=== PATIENT | male | born 1960 | race Caucasian/White ===

== ENCOUNTER 2016-06-28 10:32 | Emergency (ER) | payer OTHER ==
[~2016-06-28] VITALS: Ht 177.8 cm; Wt 72.6 kg
[2016-06-28 10:55] VITALS: BP 132/58
== END 2016-06-28 11:05 | disposition home or self-care (01) ==
LOC: ER 10:34
DX: R19.7 Diarrhea, unspecified (principal); J40 Bronchitis, not specified as acute or chronic
CPT/HCPCS: 99283; A4606; Z7610

== ENCOUNTER 2016-07-20 18:52 | Emergency (ER) | payer OTHER ==
[~2016-07-20] VITALS: Ht 175.3 cm; Wt 72.6 kg
[2016-07-20 18:59] VITALS: BP 125/88
== END 2016-07-20 19:46 | disposition home or self-care (01) ==
LOC: ER 18:56
DX: J20.9 Acute bronchitis, unspecified (principal); F41.9 Anxiety disorder, unspecified
CPT/HCPCS: A4606; Z7610

== ENCOUNTER 2016-08-06 09:17 | Emergency (ER) | payer OTHER ==
[~2016-08-06] VITALS: Ht 177.8 cm; Wt 72.6 kg
--- NOTE | 2016-08-06 09:31 | NUR ---
PT BIB SELF COUGH AND BODY X1 MO. FINISHED ZPAK X5 WEEKS AGO, FINISHED LEVAQUIN X 8 DAYS AGO. PLACED PT ON MONITOR. VSS. MADE PT COMFORTABLE AND SAFETY MEASURES IN PLACED.
[2016-08-06] MEDS ORDERED: IV NS 0.9% 1,000 ML IV ONE (10:02)
[2016-08-06] MEDS ORDERED: methylPREDNISolone SOD SUCC 125 MG/2ML VIAL ONE (10:05)
--- NOTE | 2016-08-06 10:05 | NUR ---
RAC #[id number] IV ACCESS. BLOOD SAMPLE COLLECTED SENT TO LAB
[2016-08-06] MEDS ORDERED: IV NS 0.9% 1,000 ML ONE (10:06)
[2016-08-06] MEDS ORDERED: IV SET PRIMARY PUMP SET 1 EA INFUS.SET MC ONE ×2 (10:06→10:17)
[2016-08-06] MEDS ORDERED: ALBUTEROL FS 2.5 MG/3 ML VIAL.NEB ONE (10:08)
[2016-08-06] MEDS ORDERED: IPRATROPIUM NEB FS 0.5 MG/2.5 ML AMPUL.NEB ONE (10:08)
--- NOTE | 2016-08-06 10:10 | NUR ---
RT AT BEDSIDE GIVING BREATHING TREATMENT
[2016-08-06 10:15] LABS: BASOPHILS % (AUTO) 0.7 % (0.0-2.0); EOSINOPHILS # (AUTO) 0.2 /CMM (0.0-0.7); EOSINOPHILS % (AUTO) 4.2 % (0.0-6.0); HEMATOCRIT 44 % (39-51); HEMOGLOBIN 14.6 g/dL (13.5-17.5); LYMPHOCYTES # (AUTO) 1.3 /CMM (0.8-4.8); LYMPHOCYTES % (AUTO) 26.7 % (20.0-44.0); MEAN CORPUSCULAR HEMOGLOBIN 29 PG (26.0-33.0); MEAN CORPUSCULAR HGB CONC 33 g/dl (31.0-36.0); MEAN CORPUSCULAR VOLUME 87 fL (80-96); MONOCYTES # (AUTO) 0.4 /CMM (0.1-1.30); MONOCYTES % (AUTO) 8.1 % (2.0-12.0); NEUTROPHILS % (AUTO) 60.3 % (43.0-81.0); PLATELET COUNT (AUTO) 300 /CMM (150-450); RDW COEFFICIENT OF VARIATION 12.3 (11.5-15.0); RED BLOOD CELL COUNT(AUTO) 5.12 MIL/uL (4.5-6.0); WHITE BLOOD COUNT (AUTO) 4.9 K/uL (4.3-11.0)
--- NOTE | 2016-08-06 10:16 | NUR ---
CALLED PHARMACY FOR GLO
--- NOTE | 2016-08-06 10:16 | NUR ---
XRAY AT BEDSIDE
[2016-08-06] MEDS ORDERED: CEFTRIAXONE 1GM BAG (ER ONLY) 50 ML IV ONE (10:17)
[2016-08-06 10:24] LABS: CALCIUM, SERUM 8.4 mg/dL (8.5-10.1); CREATININE 0.9 mg/dL (0.6-1.3); POTASSIUM 3.8 mmol/L (3.5-5.1)
[2016-08-06] MEDS ORDERED: IPRATROPIUM NEB FS 0.5 MG/2.5 ML AMPUL.NEB NEB ONE (10:30)
[2016-08-06] MEDS ORDERED: CEFTRIAXONE 1 G in IV D5W 50 ML IV SCH (10:30)
[2016-08-06] MEDS ORDERED: ALBUTEROL FS 2.5 MG/3 ML VIAL.NEB CONTNEB ONE (10:30)
[2016-08-06] MEDS ORDERED: methylPREDNISolone SOD SUCC 125 MG/2ML VIAL IV ONE (10:30)
--- NOTE | 2016-08-06 11:01 | NUR ---
IV removed. Catheter intact and site benign. Pressure and 4x4 applied to site. No bleeding noted.Patient discharged to home in stable condition. Written and verbal after care instructions given. Patient verbalizes understanding of instruction. prescription given to patient.
[2016-08-06 11:02] VITALS: BP 125/64
== END 2016-08-06 11:04 | disposition home or self-care (01) ==
LOC: ER 09:19
DX: J44.1 Chronic obstructive pulmonary disease with (acute) exacerbation (principal)
CPT/HCPCS: 36415; 71010; 80048; 85025; 94640; 96365; 96375; 99285; A4606; J0696; J2930; J7030; Z7610

== ENCOUNTER 2016-08-22 10:10 | Emergency (ER) | payer OTHER ==
[~2016-08-22] VITALS: Ht 175.3 cm; Wt 72.6 kg
[2016-08-22 10:37] VITALS: BP 128/77
--- NOTE | 2016-08-22 10:37 | NUR ---
Patient discharged to home in stable condition. Written and verbal after care instructions given. Patient verbalizes understanding of instruction. AMBULATORY WITH STEADY GAIT.
== END 2016-08-22 10:38 | disposition home or self-care (01) ==
LOC: EDUNIT# 10:10 → ER 10:11
DX: J40 Bronchitis, not specified as acute or chronic (principal); J44.9 Chronic obstructive pulmonary disease, unspecified
CPT/HCPCS: 99283; A4606; Z7610

== ENCOUNTER 2017-02-28 09:01 | Emergency (ER) | payer OTHER ==
[~2017-02-28] VITALS: Ht 175.3 cm; Wt 74.8 kg
[2017-02-28 09:07] VITALS: BP 130/85
== END 2017-02-28 09:56 | disposition home or self-care (01) ==
LOC: ER 09:02
DX: J20.9 Acute bronchitis, unspecified (principal); J44.9 Chronic obstructive pulmonary disease, unspecified
CPT/HCPCS: 71020; 99284; A4606; Z7610

== ENCOUNTER 2017-08-04 18:06 | Emergency (ER) | payer MEDICAID, OTHER ==
[~2017-08-04] VITALS: Ht 177.8 cm; Wt 79.4 kg
--- NOTE | 2017-08-04 18:20 | NUR ---
PT TO ED ROOM 14. ON & OFF ABDOMINAL PAIN X 3 WEEKS. A/A/O. AMBULATORY. SIDE RAISL UP. HOB ELEVATED. CONNECTED TO [employer]. SEEN AND EVALUATED BY ED PROVIDER.
--- NOTE | 2017-08-04 18:27 | NUR ---
PT PROVIDED WITH URINE SPECIMENT CUP.
[2017-08-04 18:37] LABS: APPEARANCE,URINE Clear (CLEAR); BILIRUBIN,URINE Negative (NEGATIVE); BLOOD, URINE Negative Ery/uL (NEGATIVE); COLOR,URINE Yellow (YELLOW); KETONES,URINE Negative (NEGATIVE); LEUKOCYTE ESTERASE ,URINE Negative (NEGATIVE); NITRITE, URINE Negative (NEGATIVE); PH,URINE 5.5 (5.0-8.0); PROTEIN,URINE Negative (NEGATIVE); UGLUCOSE Negative (NEGATIVE); UROBILINOGEN,URINE 0.2 EU/dL (0.2)
[2017-08-04 18:52] LABS: BASOPHILS # (AUTO) 0.2 /CMM (0.0-0.2); BASOPHILS % (AUTO) 2.2 % (0.0-2.0); EOSINOPHILS % (AUTO) 1.7 % (0.0-6.0); HEMATOCRIT 46 % (39-51); HEMOGLOBIN 15.5 g/dL (13.5-17.5); LYMPHOCYTES # (AUTO) 2.2 /CMM (0.8-4.8); LYMPHOCYTES % (AUTO) 22.9 % (20.0-44.0); MEAN CORPUSCULAR HGB CONC 34 g/dl (31.0-36.0); MEAN CORPUSCULAR VOLUME 89 fL (80-96); MONOCYTES # (AUTO) 0.7 /CMM (0.1-1.30); MONOCYTES % (AUTO) 7.7 % (2.0-12.0); NEUTROPHILS # (AUTO) 6.1 /CMM (1.8-8.9); NEUTROPHILS % (AUTO) 65.5 % (43.0-81.0); PLATELET COUNT (AUTO) 421 /CMM (150-450); RDW COEFFICIENT OF VARIATION 12.8 (11.5-15.0); RED BLOOD CELL COUNT(AUTO) 5.13 MIL/uL (4.5-6.0); WHITE BLOOD COUNT (AUTO) 9.4 K/uL (4.3-11.0)
--- NOTE | 2017-08-04 19:03 | NUR ---
REPORT RECEIVED FROM RUBEN DAN FOR [facility].
[2017-08-04 19:07] LABS: CALCIUM, SERUM 9.2 mg/dL (8.5-10.1); CREATININE 0.8 mg/dL (0.6-1.3)
[2017-08-04 19:13] LABS: ALBUMIN 3.8 g/dL (3.4-5.0); BILIRUBIN,DIRECT 0.1 mg/dL (0.0-0.2); BILIRUBIN,TOTAL 0.6 mg/dL (0.2-1.0); TOTAL PROTEIN, SERUM 7.5 g/dL (6.4-8.2)
--- NOTE | 2017-08-04 19:20 | NUR ---
Mu marshall in [facility] - 08/04/17 at 1932 by JONAS URINE SPECIMEN SENT TO THE LAB.
--- NOTE | 2017-08-04 19:32 | NUR ---
Mu marshall in [facility] - 08/04/17 at 1932 by JONAS LAB AT [facility].
--- NOTE | 2017-08-04 21:05 | NUR ---
MD AT BEDSIDE SPEAKING WITH PATIENT.
--- NOTE | 2017-08-04 21:12 | NUR ---
Patient discharged to home in stable condition. Written and verbal after care instructions given. Patient verbalizes understanding of instruction. Patient ambulatory with a steady gait.
[2017-08-04 21:13] VITALS: BP 133/83
== END 2017-08-04 21:14 | disposition home or self-care (01) ==
LOC: ER 18:07
DX: R10.84 Generalized abdominal pain (principal); F32.9 Major depressive disorder, single episode, unspecified; F41.9 Anxiety disorder, unspecified; J44.9 Chronic obstructive pulmonary disease, unspecified; Z60.2 Problems related to living alone
CPT/HCPCS: 36415; 74021; 80048-TC; 80076-TC; 81000-TC; 83690-TC; 85025-TC; A4606; Z7610

== ENCOUNTER 2017-10-01 17:26 | Emergency (ER) | payer MEDICAID, OTHER ==
[~2017-10-01] VITALS: Ht 177.8 cm; Wt 79.4 kg
[2017-10-01 17:33] VITALS: BP 104/69
== END 2017-10-01 18:16 | disposition home or self-care (01) ==
LOC: ER 17:28
DX: R19.7 Diarrhea, unspecified (principal); R05 Cough; J44.9 Chronic obstructive pulmonary disease, unspecified; F10.10 Alcohol abuse, uncomplicated; Z60.2 Problems related to living alone
CPT/HCPCS: 71045-TC; A4606; Z7610